=== PATIENT | female | born 1975 | race Hispanic/Latino ===

== ENCOUNTER 2019-05-14 05:14 | Emergency (ER) | payer BC, OTHER ==
[2019-05-14] MEDS ORDERED: ONDANSETRON HCL 4 MG/2 ML VIAL ONE (05:42)
[2019-05-14 05:43] LABS: BASOPHILS % (AUTO) 0.4 % (0.0-5.0); EOSINOPHILS % (AUTO) 0.8 % (0.0-8.0); HEMATOCRIT 47.6 % (36-48); LYMPHOCYTES % (AUTO) 17.5 % (21.0-51.0); MEAN CORPUSCULAR HEMOGLOBIN 25.8 pg (27.0-33.0); MEAN CORPUSCULAR HGB CONC 33.2 g/dL (32.0-36.0); MEAN CORPUSCULAR VOLUME 77.8 fL (79-99); MONOCYTES % (AUTO) 11.8 % (3.0-13.0); NEUTROPHILS % (AUTO) 69.3 % (40.0-77.0); PLATELET COUNT (AUTO) 305 K/uL (130-400); RED BLOOD CELL COUNT(AUTO) 6.12 MIL/uL (4.00-5.50); RED CELL DISTRIBUTION WIDTH 13.1 % (11.0-15.5); WHITE BLOOD COUNT (AUTO) 9.2 K/uL (4.8-10.8)
[2019-05-14 05:44] LABS: APPEARANCE,URINE Clear (CLEAR); BILIRUBIN,URINE Negative (NEGATIVE); COLOR,URINE Yellow (YELLOW); GLUCOSE, URINE (UA) Negative (NEGATIVE); KETONES,URINE 40 mg/dL (NEGATIVE); LEUKOCYTE ESTERASE ,URINE Negative (NEGATIVE); NITRATE,URINE Negative (NEGATIVE); OCCULT BLOOD,URINE Negative (NEGATIVE); PROTEIN,URINE Negative (NEGATIVE); UROBILINOGEN,URINE 0.2 mg/dL (0.2-1.0)
[2019-05-14 05:52] LABS: CREATININE 0.9 mg/dL (0.5-1.5); HCG,QUAL RESULT NEGATIVE (NEGATIVE); POTASSIUM 3.1 mmol/L (3.5-5.1)
[2019-05-14 05:56] LABS: ALBUMIN 3.4 g/dL (3.5-5.0); BILIRUBIN,TOTAL 0.3 mg/dL (0.2-1.0); TOTAL PROTEIN, SERUM 7.4 g/dL (6.0-8.3)
[2019-05-14] MEDS ORDERED: SODIUM CHLORIDE 0.9% 1000ML 1,000 ML IV ONE (06:16)
== END 2019-05-14 07:12 | disposition home or self-care (01) ==
LOC: EDH 05:14
DX: A09 Infectious gastroenteritis and colitis, unspecified (principal); E86.9 Volume depletion, unspecified; E11.9 Type 2 diabetes mellitus without complications; I10 Essential (primary) hypertension
CPT/HCPCS: 36415; 80053; 81003; 81025; 85025; 93005; 96361; 96374; 99284; J2405; J7030

== ENCOUNTER 2021-08-02 15:27 | Emergency (ER) | payer BC ==
[~2021-08-02] VITALS: Ht 165.1 cm; Wt 95.3 kg
[2021-08-02 15:50] LABS: BASOPHILS % (AUTO) 0.6 % (0.0-5.0); EOSINOPHILS % (AUTO) 2.4 % (0.0-8.0); HEMATOCRIT 37.8 % (36-48); LYMPHOCYTES % (AUTO) 30.5 % (21.0-51.0); MEAN CORPUSCULAR HEMOGLOBIN 26.5 pg (27.0-33.0); MEAN CORPUSCULAR HGB CONC 33.6 g/dL (32.0-36.0); MEAN CORPUSCULAR VOLUME 78.8 fL (79-99); MONOCYTES % (AUTO) 6.8 % (3.0-13.0); NEUTROPHILS % (AUTO) 59.6 % (40.0-77.0); PLATELET COUNT (AUTO) 357 K/uL (130-400); RED CELL DISTRIBUTION WIDTH 14.4 % (11.0-15.5); WHITE BLOOD COUNT (AUTO) 7.1 K/uL (4.8-10.8)
[2021-08-02] MEDS ORDERED: CYCLOBENZAPRINE HCL 10 MG TABLET PO ONE (16:00)
[2021-08-02] MEDS ORDERED: KETOROLAC 60 MG VIAL (30MG/ML) IM ONE (16:00)
[2021-08-02 16:11] LABS: CREATININE 0.7 mg/dL (0.5-1.5); POTASSIUM 3.8 mmol/L (3.5-5.1)
[2021-08-02 16:17] LABS: ALBUMIN 3.6 g/dL (3.5-5.0); BILIRUBIN,TOTAL 0.2 mg/dL (0.2-1.0); TOTAL PROTEIN, SERUM 7.6 g/dL (6.0-8.3)
[2021-08-02] MEDS ORDERED: KETOROLAC 30MG VIAL (30MG/ML) ONE (16:39)
[2021-08-02] MEDS ORDERED: KETOROLAC 30MG VIAL (30MG/ML) IV ONE (17:00)
[2021-08-02] MEDS ORDERED: IBUP-2070 PO (17:17)
[2021-08-02] MEDS ORDERED: CYCL10TA16 PO (17:17)
[2021-08-02 17:46] VITALS: BP 168/67
== END 2021-08-02 17:48 | disposition home or self-care (01) ==
LOC: EDH 15:27
DX: S29.012A Strain of muscle and tendon of back wall of thorax, initial encounter (principal); E11.9 Type 2 diabetes mellitus without complications; E78.00 Pure hypercholesterolemia, unspecified; I10 Essential (primary) hypertension; Z90.49 Acquired absence of other specified parts of digestive tract; Z98.890 Other specified postprocedural states; X58.XXXA Exposure to other specified factors, initial encounter; Y93.89 Activity, other specified; Y92.89 Other specified places as the place of occurrence of the external cause; Y99.8 Other external cause status
CPT/HCPCS: 36415; 71045; 73010; 80053; 84484; 85025; 93005; 96374; 99284; J1885

== ENCOUNTER 2022-03-31 18:42 | Emergency (ER) | payer BC ==
[~2022-03-31] VITALS: Ht 165.1 cm; Wt 97.5 kg
[~2022-03-31 18:42] MED LIST: CYCL10TA16 PO; IBUP-2070 PO
[2022-03-31] MEDS ORDERED: ONDANSETRON 4MG INJ IVP ONE (20:00)
[2022-03-31] MEDS ORDERED: MECLIZINE HCL 25 MG TABLET PO ONE (20:00)
[2022-03-31] MEDS ORDERED: 0.9%NACL 1000ML 1,000 ML IV ONE (20:00)
[2022-03-31 20:07] LABS: HCG,QUALITATIVE URINE NEGATIVE (NEGATIVE)
[2022-03-31 20:11] LABS: APPEARANCE,URINE CLEAR (CLEAR); BILIRUBIN,URINE NEGATIVE (NEGATIVE); COLOR,URINE COLORLESS (YELLOW); GLUCOSE, URINE (UA) >=1000 mg/dL (NEGATIVE); KETONES,URINE NEGATIVE (NEGATIVE); LEUKOCYTE ESTERASE ,URINE NEGATIVE Leu/uL (NEGATIVE); NITRATE,URINE NEGATIVE (NEGATIVE); OCCULT BLOOD,URINE NEGATIVE (NEGATIVE); PH,URINE 5.5 (5.0-8.0); PROTEIN,URINE NEGATIVE (NEGATIVE); UROBILINOGEN,URINE 0.2 mg/dL (0.2-1.0)
[2022-03-31 20:21] LABS: RBC,URINE 0-1 /HPF (0-1); SQUAMOUS EPITHELIAL CELL,UR RARE /HPF (0-2); WBC,URINE 0-1 /HPF (0-1)
[2022-03-31 20:26] LABS: BASOPHILS % (AUTO) 0.8 % (0.0-5.0); EOSINOPHILS % (AUTO) 1.8 % (0.0-8.0); HEMATOCRIT 43.8 % (36-48); LYMPHOCYTES % (AUTO) 32.9 % (21.0-51.0); MEAN CORPUSCULAR HEMOGLOBIN 26.3 pg (27.0-33.0); MEAN CORPUSCULAR HGB CONC 32.4 g/dL (32.0-36.0); MEAN CORPUSCULAR VOLUME 81.1 fL (79-99); MONOCYTES % (AUTO) 5.7 % (3.0-13.0); NEUTROPHILS % (AUTO) 58.7 % (40.0-77.0); PLATELET COUNT (AUTO) 350 K/uL (130-400); RED CELL DISTRIBUTION WIDTH 13.2 % (11.0-15.5); WHITE BLOOD COUNT (AUTO) 8.5 K/uL (4.8-10.8)
[2022-03-31 20:52] LABS: ALBUMIN 3.9 g/dL (3.5-5.0); CREATININE 0.8 mg/dL (0.5-1.5); POTASSIUM 3.8 mmol/L (3.5-5.1); TOTAL PROTEIN, SERUM 8.5 g/dL (6.0-8.3)
[2022-03-31] MEDS ORDERED: MECL-226 PO (21:37)
[2022-03-31] MEDS ORDERED: ONDA4TAB10 PO (21:37)
[2022-03-31 21:46] VITALS: BP 140/82
== END 2022-03-31 22:05 | disposition home or self-care (01) ==
LOC: EDH 18:42
DX: H81.10 Benign paroxysmal vertigo, unspecified ear (principal); E11.65 Type 2 diabetes mellitus with hyperglycemia; E78.00 Pure hypercholesterolemia, unspecified; I10 Essential (primary) hypertension; E66.9 Obesity, unspecified; Z68.35 Body mass index [BMI] 35.0-35.9, adult; Z79.1 Long term (current) use of non-steroidal anti-inflammatories (NSAID); Z90.49 Acquired absence of other specified parts of digestive tract
CPT/HCPCS: 99284; 96374; 87635; 96361; 80053; 85025; 87804 ×2; 81001; 81025; 36415; C9803; J7030; J2405

== ENCOUNTER 2023-12-07 02:25 | Emergency (ER) | payer BC ==
[~2023-12-07] VITALS: Ht 165.1 cm; Wt 88.5 kg
[~2023-12-07 02:25] MED LIST changes: +MECL-226 PO; +ONDA-243 PO
[2023-12-07 02:35] VITALS: BP 192/99; PULSE 118; RESP 18; O2SAT 98
[2023-12-07 02:38] LABS: BASOPHILS # (AUTO) 0.04 K/uL (0.00-0.20); BASOPHILS % (AUTO) 0.6 % (0.0-5.0); EOSINOPHILS # (AUTO) 0.06 K/uL (0.00-0.70); EOSINOPHILS % (AUTO) 0.9 % (0.0-8.0); HEMATOCRIT 44.5 % (36-48); IMMATURE GRANULOCYTE ABSOLUTE 0.02 K/uL (0-1); LYMPHOCYTES # (AUTO) 1.5 K/uL (1.0-4.8); LYMPHOCYTES % (AUTO) 23.3 % (21.0-51.0); MEAN CORPUSCULAR HEMOGLOBIN 26.3 pg (27.0-33.0); MEAN CORPUSCULAR HGB CONC 33.5 g/dL (32.0-36.0); MEAN CORPUSCULAR VOLUME 78.5 fL (79-99); MONOCYTES # (AUTO) 0.5 K/uL (0.1-1.0); MONOCYTES % (AUTO) 7.8 % (3.0-13.0); NEUTROPHILS # (AUTO) 4.4 K/uL (1.8-7.7); NEUTROPHILS % (AUTO) 67.1 % (40.0-77.0); PLATELET COUNT (AUTO) 333 K/uL (130-400); RED BLOOD CELL COUNT(AUTO) 5.67 MIL/uL (4.00-5.50); RED CELL DISTRIBUTION WIDTH 12.6 % (11.0-15.5); WHITE BLOOD COUNT (AUTO) 6.6 K/uL (4.8-10.8)
[2023-12-07 02:55] LABS: CREATININE 0.8 mg/dL (0.5-1.0); POTASSIUM 3.7 mmol/L (3.5-5.1)
[2023-12-07 03:00] LABS: ALBUMIN 3.3 g/dL (3.5-5.0); BILIRUBIN,TOTAL 0.3 mg/dL (0.2-1.0); TOTAL PROTEIN, SERUM 7.8 g/dL (6.0-8.3)
[2023-12-07] MEDS: MORPHINE 4 MG SYG IVP ONE (03:00)
[2023-12-07] MEDS: LACTATED RINGERS IV ONE (03:00)
[2023-12-07 03:03] LABS: SARS-CoV-2, RNA, NAAT NEGATIVE SARS CoV-2 (NEGATIVE)
[2023-12-07 03:07] LABS: INFLUENZA TYPE A Negative For Type A (NEGATIVE); INFLUENZA TYPE B Negative For Type B (NEGATIVE)
[2023-12-07] MEDS: INSULIN HUMULIN R 100 UNIT/ML 3ML SQ ONE ×2 (04:56→06:42)
[2023-12-07] MEDS: INSULIN NPH 100 UNIT/ML 3ML SQ SCH (05:53)
== END 2023-12-07 07:36 | disposition home or self-care (01) ==
LOC: EDH 02:25
DX: R10.84 Generalized abdominal pain (principal); E11.9 Type 2 diabetes mellitus without complications; E78.00 Pure hypercholesterolemia, unspecified; E66.9 Obesity, unspecified; I10 Essential (primary) hypertension; Z20.822 Contact with and (suspected) exposure to COVID-19; Z79.899 Other long term (current) drug therapy; Z90.49 Acquired absence of other specified parts of digestive tract; Z98.890 Other specified postprocedural states
CPT/HCPCS: 99284; 74176; 96374; 96375; 96361; 71045; 87635; 84484; 80053; 85025; 87804 ×2; 82948 ×3; 83605; 36415; 93005; J1815 ×3; J7120; J2270

== ENCOUNTER 2025-02-27 08:28 | Emergency (ER) | payer BC ==
[~2025-02-27] VITALS: Ht 165.1 cm; Wt 90.7 kg
[~2025-02-27 08:28] MED LIST changes: -CYCL10TA16 PO; -IBUP-2070 PO; +INSU100I3 SQ; +INSU100I35 SQ; +LISI5TAB21 PO; +METO25 PO; +PANT40TA PO
[2025-02-27] MEDS: 0.9%NACL 1000ML 1,000 ML IV ONE (09:00)
[2025-02-27 09:05] LABS: IMMATURE GRANULOCYTE ABSOLUTE 0.03 K/uL (0-1); NUCLEATED RED BLOOD CELLS 0.0 % (0.0-0.19); PLATELET COUNT (AUTO) 205 K/uL (130-400); RED BLOOD CELL COUNT(AUTO) 5.19 MIL/uL (4.00-5.50); RED CELL DISTRIBUTION WIDTH 13.7 % (11.0-15.5); WHITE BLOOD COUNT (AUTO) 5.5 K/uL (4.8-10.8)
[2025-02-27 09:13] LABS: CREATININE 0.9 mg/dL (0.5-1.0); GLOMERULAR FILTR. RATE CALC 78 mL/min (>90); GLUCOSE,RANDOM 331 mg/dL (70-105); SODIUM SERUM 133 mmol/L (136-145); UREA NITROGEN, BLOOD 11 mg/dL (7-18)
[2025-02-27 09:18] LABS: ASPARTATE AMINOTRANSFERASE 42 U/L (10-37); CREATINE KINASE, TOTAL 60 U/L (21-232); TOTAL PROTEIN, SERUM 6.8 g/dL (6.0-8.3)
--- NOTE | 2025-02-27 09:33 | EKG ---
[facility] Test Date: 2025-02-27 Test Time: 09:26:42 Pat Name: EMILIE JOSEPH Department: ED Room: Gender: F Chief Operator Lock Tender: 1378 : 1975 Requested By: KULDIP SANTOS Order Number: [id number] Reading MD: Abrahan Estrada Measurements Intervals [place] Rate: 97 P: 43 ID: [id number] QRS: -4 QRSD: 79 T: 38 QT: 339 QTc: 431 Interpretive Statements Sinus rhythm Probable left atrial enlargement Probable left ventricular hypertrophy Compared to ECG 05/06/2024 20:55:31 Sinus tachycardia no longer present Myocardial infarct finding no longer present Electronically Signed On 02-27-2025 18:16:57 [employer] PIPE [employer]KER [employer]AL by Abrahan Estrada Please click the below link to view image of tracing.
[2025-02-27 10:05] LABS: COVID19 (SARS ANTIGEN RAPID) PRESUMPTIVE NEGATIVE (NEGATIVE); INFLUENZA TYPE A Negative For Type A (NEGATIVE); INFLUENZA TYPE B Negative For Type B (NEGATIVE)
[2025-02-27 10:24] LABS: BAND NEUTROPHILS % (MANUAL) 4 % (0-2); BASOPHILS % (MANUAL) 3 % (0-2); LYMPHOCYTES % (MANUAL) 17 % (22-44); MAN.DIFF COMMENT-IMPRESSION MANUAL DIFFERENTIAL; MONOCYTES % (MANUAL) 7 % (2-9); PLATELET MORPHOLOGY COMMENT ADEQUATE; REACTIVE LYMPHOCYTES 8 % (0-0); SEGMENTED NEUTROPHILS % 61 % (40-70)
[2025-02-27 11:04] LABS: APPEARANCE,URINE CLEAR (CLEAR); GLUCOSE, URINE (UA) >=1000 mg/dL (NEGATIVE); LEUKOCYTE ESTERASE ,URINE 25 Leu/uL (NEGATIVE); NITRATE,URINE 1+ (NEGATIVE); OCCULT BLOOD,URINE LARGE (NEGATIVE)
[2025-02-27 11:05] LABS: ADD UA MICROSCOPIC YES
[2025-02-27 11:17] LABS: SQUAMOUS EPITHELIAL CELL,UR FEW /HPF (0-2)
[2025-02-27] MEDS ORDERED: ONDA-243 PO (11:51)
[2025-02-27] MEDS ORDERED: CIPR-278 PO (11:51)
--- NOTE | 2025-02-27 11:51 | ERN ---
ED Note History of Present Illness Stated Complaint: UPPER BACK PAIN, N/V Chief Complaint: Back Pain-No Injury Time Seen by MD: 08:37 Dictation: 49-year-old female presenting to the emergency department with nausea vomiting and back pain, history of diabetes says her sugars have been high and not feeling well body aches as well. No chest pain or shortness a breath Allergies: Coded Allergies: No Known Drug Allergies (Unverified Allergy, Unknown, 05/15/19) Home Meds Active Scripts Insulin Aspart (Novolog Flexpen) 100 Unit/Ml (3 Ml) Insuln.pen, 2 UNITS SQ TIDAC for 30 Days, #30 SYRINGE 1 Refill Prov:MABEL SEPULVEDA MD 05/12/24 Insulin NPH Hum/Reg Insulin Hm (Novolin 70-30 Flexpen) 100 Unit/Ml (70-30) In suln.pen, 15 UNIT SQ BID for 30 Days, #30 SYRINGE 1 Refill Prov:MABEL SEPULVEDA MD 05/12/24 Pantoprazole Sodium (Protonix) 40 Mg Tablet.dr, 40 MG PO DAILY for 30 Days, #30 TAB 1 Refill Prov:MABEL SEPULVEDA MD 05/12/24 Metoprolol Tartrate (Lopressor) 25 Mg Tab, 25 MG PO BID for 30 Days, #60 TAB 1 Refill Prov:MABEL SEPULVEDA MD 05/12/24 Lisinopril (Lisinopril) 5 Mg Tablet, 5 MG PO DAILY for 30 Days, #30 TAB 1 Refill Prov:MABEL SEPULVEDA MD 05/12/24 Meclizine HCl (Meclizine HCl) 12.5 Mg Tablet, 25 MG PO TID PRN for DIZZINESS, #20 TAB Prov:MILAN JUSTIN 03/31/22 Ondansetron (Ondansetron Odt) 4 Mg Tab.rapdis, 4 MG PO TID, #10 TAB Prov:MILAN JUSTIN 03/31/22 Past Medical History Past Medical History: Diabetes-Type II, High Cholesterol, Hypertension, Kidney Stone Additional Past Medical Hx: Obesity, NON COMPLIANT W/ DM MEDS Surgical History: Cholecystectomy, Family History: Negative Social History: Negative Review of System Dictation Constitutional: Negative for fever,chills, and weight loss Eyes: Negative for injury, pain,redness, and discharge ENT: Negative for injury,pain or swelling Cardiovascular: Negative for chest pain, palpitations, and edema Respiratory: Negative for shortness of breath, cough, and wheezing, Abdomen/GI: Per HPI : Negative for injury, bleeding and discharge MS/Extremity: Negative for injury and deformity Skin: Negative for rash, and discoloration Neuro: Per HPI Initial Vital Sign VS Vital Signs Date Time Temp Pulse Resp B/P (MAP) Pulse Ox O2 Delivery O2 Flow Rate FiO2 02/27/25 08:29 97.9 112 18 190/86 100 Room Air 0 Physical Exam Dictation General: awake, alert, NAD Head/Face: Normocephalic, atraumatic Eyes: PERRL, EOMI, vision at baseline ENT: oral cavity clear, TMs clear, no signs of infection Neck: Trachea midline, supple, no nuchal rigidity Cardiovascular: RRR, normal S1/S2, No MRGs, no JVD Respiratory: CTAB, no respiratory distress, No rales or wheezes Abdomen: Soft, non-tender, non-distended, normal bowel sounds, no guarding or rebound. Skin: Warm, dry, normal turgor, no rash MS/Extremity: Pulses equal, no cyanosis, neurovascular intact, FROM Neuro: COAx4, GCS 15, strength 5/5, CN 2-12 intact, normal cerebellar exam, normal gait, Psych: Normal behavior, mood, and affect normal Results (Laboratory/Radiology) Laboratory/Radiology Laboratory Tests Test 02/27/25 08:50 02/27/25 09:30 02/27/25 10:45 White Blood Count 5.5 K/uL (4.8-10.8) Red Blood Count 5.19 MIL/uL (4.00-5.50) Hemoglobin 13.0 g/dL (12.0-16.0) Hematocrit 40.6 % (36-48) Mean Corpuscular Volume 78.2 fL (79-99) L Mean Corpuscular Hemoglobin 25.0 pg (27.0-33.0) L Mean Corpuscular Hemoglobin Concent 32.0 g/dL (32.0-36.0) Red Cell Distribution Width 13.7 % (11.0-15.5) Platelet Count 205 K/uL (130-400) Mean Platelet Volume 10.0 fL (7.5-10.5) Immature Granulocyte % (Auto) 0.5 % (0-1) Neutrophils (%) (Auto) 55.2 % (40.0-77.0) Lymphocytes (%) (Auto) 36.5 % (21.0-51.0) Monocytes (%) (Auto) 5.8 % (3.0-13.0) Eosinophils (%) (Auto) 1.3 % (0.0-8.0) Basophils (%) (Auto) 0.7 % (0.0-5.0) Neutrophils # (Auto) 3.0 K/uL (1.8-7.7) Lymphocytes # (Auto) 2.0 K/uL (1.0-4.8) Monocytes # (Auto) 0.3 K/uL (0.1-1.0) Eosinophils # (Auto) 0.07 K/uL (0.00-0.70) Basophils # (Auto) 0.04 K/uL (0.00-0.20) Absolute Immature Granulocyte (auto 0.03 K/uL (0-1) Segmented Neutrophils % 61 % (40-70) Band Neutrophils % 4 % (0-2) H Lymphocytes % (Manual) 17 % (22-44) L Monocytes % (Manual) 7 % (2-9) Basophils % (Manual) 3 % (0-2) H Nucleated Red Blood Cells 0.0 % (0.0-0.19) Differential Comment MANUAL DIFFERENTIAL Reactive Lymphocytes 8 % (0-0) H White Cell Morphology Comment Platelet Morphology Comment ADEQUATE Red Blood Cell Morphology NORMAL Sodium Level 133 mmol/L (136-145) L Potassium Level 4.0 mmol/L (3.5-5.1) Chloride Level 96 mmol/L (101-111) L Carbon Dioxide Level 28 mmol/L (21-32) Blood Urea Nitrogen 11 mg/dL (7-18) Creatinine 0.9 mg/dL (0.5-1.0) Glomerular Filtration Rate Calc 78 mL/min (>90) Random Glucose 331 mg/dL (70-105) H Lactic Acid Level 1.2 mmol/L (0.8-2.5) Total Calcium 8.2 mg/dL (8.5-10.1) L Total Bilirubin 0.3 mg/dL (0.2-1.0) Direct Bilirubin < 0.1 mg/dL (0.0-0.3) Aspartate Amino Transf (AST/SGOT) 42 U/L (10-37) H Alanine Aminotransferase (ALT/SGPT) 55 U/L (12-78) Alkaline Phosphatase 115 U/L (50-136) Total Creatine Kinase 60 U/L (21-232) # Troponin I High Sensitivity 26 ng/L (4-50) Total Protein 6.8 g/dL (6.0-8.3) Albumin 3.2 g/dL (3.5-5.0) L Lipase 54 U/L (16-77) Influenza Type A Antigen Negative For Type A Influenza Type B Antigen Negative For Type B SARS-CoV-2 Antigen (Rapid) PRESUMPTIVE NEGATIVE Urine Color LIGHT-YELLOW (YELLOW) Urine Appearance CLEAR (CLEAR) Urine pH 5.5 (5.0-8.0) Urine Specific [place] 1.022 (1.001-1.031) Urine Protein 50 mg/dL (NEGATIVE) H Urine Glucose (UA) >=1000 mg/dL (NEGATIVE) H Urine Ketones 40 mg/dL (NEGATIVE) H Urine Occult Blood LARGE (NEGATIVE) H Urine Nitrate 1+ (NEGATIVE) H Urine Bilirubin NEGATIVE mg/dL (NEGATIVE) Urine Urobilinogen 0.2 mg/dL (0.2-1.0) Urine Leukocyte Esterase 25 Mohan/uL (NEGATIVE) H Urine RBC 6-10 /HPF (0-1) H Urine WBC 11-25 /HPF (0-1) H Urine Squamous Epithelial Cells FEW /HPF (0-2) Urine Bacteria MANY /HPF (None Seen) Labs Reviewed?: Yes ED Course ED Course Orders Procedure Category Date Status Time 12 Lead Ekg Tracing- EKG 02/27/25 Complete Technical 08:37 Basic Metabolic Panel LAB 02/27/25 Complete 08:37 Cbc With Differential LAB 02/27/25 Complete 08:37 Hepatic Function Panel LAB 02/27/25 Complete 08:37 Creatine Kinase, Total LAB 02/27/25 Complete 08:37 Lactic Acid LAB 02/27/25 Complete 08:37 Lipase LAB 02/27/25 Complete 08:37 Troponin I High LAB 02/27/25 Complete Sensitivity 08:37 Urinalysis Profile LAB 02/27/25 Complete 08:37 Ondansetron 4mg Inj PHA 02/27/25 Complete (Zofran 4mg Inj) 08:37 0.9%Nacl 1000ml (Ns PHA 02/27/25 Complete 1000ml) 09:00 Manual Differential LAB 02/27/25 Complete 08:50 Covid19 (Sars Antigen LAB 02/27/25 Complete Rapid) 09:19 Influenza Type A & B, LAB 02/27/25 Complete Rapid 09:19 Culture Urine SILVANO 02/27/25 In Process 11:05 Ceftriaxone 1g Vial PHA 02/27/25 Transmitted (Rocephine 1g Inj) 11:47 Insulin Regular, PHA 02/27/25 Transmitted Human 3ml (Humulin R 11:47 Current Medications Medications (Trade) Dose Ordered Sig/Keerthi Route PRN Reason Start Time Stop Time Status Last Admin Dose Admin Ondansetron HCl (zoFRAN 4MG INJ) 4 mg ONCE STAT IVP 02/27/25 08:37 02/27/25 08:40 DC Sodium Chloride 1,000 ml @ 0 mls/hr ONCE ONCE IV 02/27/25 09:00 02/27/25 09:01 DC Vital Signs Date Time Temp Pulse Resp B/P (MAP) Pulse Ox O2 Delivery O2 Flow Rate FiO2 02/27/25 08:29 97.9 112 18 190/86 100 Room Air 0 Medical Decision Making MDM MDM: Differential diagnosis: Rationale: Tests considered and ordered secondary to shared decision making include: Previous outside records reviewed: Old ER visits. Risk of complication and/or morbidity or mortality of patient management: None Medications-Per medication reconciliation Need for hospitalization: Patient does not meet criteria for hospitalization. Need for emergency major/minor surgery: No There are no social concerns with this patient. Prescription drug management Prescriptions will include symptomatic care Patient's prior external medical records from other ER visits were reviewed by me as indicated. Prior testing and results from previous visits were reviewed. Prior tests were taken into account with medical decision making and resource utilization, independent historian/historians were used to obtain complete medi david history. I independently interpreted the test that were performed, results were reviewed by me and considered findings on radiology if ordered. Medical management and examination interpretation discussions were had by me with other qualified healthcare professionals as indicated for the patient's care. 49-year-old female with generalized weakness UTI and elevated sugar levels with normal CO2 no signs of DKA IV fluids and insulin given stable for discharge outpatient antibiotic treatment. DX & DISP Disposition: Discharge Departure Impression: Primary Impression: Hyperglycemia Additional Impression: Pyelonephritis Condition: Stable Scripts Ciprofloxacin HCl (Cipro) 500 Mg Tablet 1 TAB PO BID for 7 Days, #14 TAB 0 Refills Prov: KULDIP SANTOS MD 02/27/25 Ondansetron (Ondansetron Odt) 4 Mg Tab.rapdis 1 TAB PO BID PRN for nausea/vomiting for 5 Days, #10 TAB 0 Refills Prov: KULDIP SANTOS MD 02/27/25 Referrals: LANDON MCLAUGHLIN DO (PCP) KULDIP SANTOS MD Feb 27, 2025 11:51
[2025-02-27 14:04] VITALS: BP 168/86; PULSE 69; RESP 20; TEMP 98.5; O2SAT 97
--- NOTE | 2025-03-01 09:49 | NUR ---
UPON FURTHER REVIEW OF CULTURE REPORT BY DR. LOYA (NEW ABX *BACTRIM DS BID X7 DAYS) IS NEEDED. CALLED PT, NO ANSWER; LEFT VOICEMAIL.
[2025-03-29] MEDS ORDERED: MECL-302 PO (13:00)
[2025-03-29] MEDS ORDERED: AMOX1TAB16 PO (13:00)
== END 2025-02-27 14:24 | disposition home or self-care (01) ==
LOC: EDH 08:28
DX: N12 Tubulo-interstitial nephritis, not specified as acute or chronic (principal); E11.65 Type 2 diabetes mellitus with hyperglycemia; E66.9 Obesity, unspecified; E78.00 Pure hypercholesterolemia, unspecified; I10 Essential (primary) hypertension; Z20.822 Contact with and (suspected) exposure to COVID-19; Z79.4 Long term (current) use of insulin; Z79.899 Other long term (current) drug therapy; Z87.442 Personal history of urinary calculi; Z90.49 Acquired absence of other specified parts of digestive tract
CPT/HCPCS: 99284; 96365; 96361; 96375; 87426; 82550; 80076; 84484; 80048; 83690; 85025; 87086 ×2; 87186; 87804 ×2; 82948; 83605; 81001; 36415; 93005; 96372; J1815; J0696; J2405

== ENCOUNTER 2025-03-29 10:13 | Emergency (ER) | payer BC ==
[~2025-03-29] VITALS: Ht 165.1 cm; Wt 90.7 kg
--- NOTE | 2025-03-29 10:19 | ERN ---
ED Note History of Present Illness Stated Complaint: DIZZINESS Chief Complaint: Dizzy/Light Headed Time Seen by MD: 10:15 Dictation: PATIENT IS A 49-YEAR-OLD DIABETIC FEMALE COMING IN TODAY WITH COMPLAINTS OF VERTIGO WITH NAUSEA VOMITING AND GENERALIZED BODY WEAKNESS ONSET THIS MORNING. NO CHEST PAIN BACK PAIN NO HEADACHE. SHE STATES SHE HAS A HISTORY OF VERTIGO IN HIS NOT SEEN HER DOCTOR AT [facility]. Allergies: Coded Allergies: No Known Drug Allergies (Unverified Allergy, Unknown, 05/15/19) Home Meds Active Scripts Ciprofloxacin HCl (Cipro) 500 Mg Tablet, 1 TAB PO BID for 7 Days, #14 TAB 0 Refills Prov:KULDIP SANTOS MD 02/27/25 Ondansetron (Ondansetron Odt) 4 Mg Tab.rapdis, 1 TAB PO BID PRN for nausea/vomiting for 5 Days, #10 TAB 0 Refills Prov:KULDIP SANTOS MD 02/27/25 Insulin Aspart (Novolog Flexpen) 100 Unit/Ml (3 Ml) Insuln.pen, 2 UNITS SQ TIDAC for 30 Days, #30 SYRINGE 1 Refill Prov:MABEL SEPULVEDA MD 05/12/24 Insulin NPH Hum/Reg Insulin Hm (Novolin 70-30 Flexpen) 100 Unit/Ml (70-30) In suln.pen, 15 UNIT SQ BID for 30 Days, #30 SYRINGE 1 Refill Prov:MABEL SEPULVEDA MD 05/12/24 Pantoprazole Sodium (Protonix) 40 Mg Tablet.dr, 40 MG PO DAILY for 30 Days, #30 TAB 1 Refill Prov:MABEL SEPULVEDA MD 05/12/24 Metoprolol Tartrate (Lopressor) 25 Mg Tab, 25 MG PO BID for 30 Days, #60 TAB 1 Refill Prov:MABEL SEPULVEDA MD 05/12/24 Lisinopril (Lisinopril) 5 Mg Tablet, 5 MG PO DAILY for 30 Days, #30 TAB 1 Refill Prov:MABEL SEPULVEDA MD 05/12/24 Meclizine HCl (Meclizine HCl) 12.5 Mg Tablet, 25 MG PO TID PRN for DIZZINESS, #20 TAB Prov:MILAN JUSTIN 03/31/22 Ondansetron (Ondansetron Odt) 4 Mg Tab.rapdis, 4 MG PO TID, #10 TAB Prov:MILAN JUSTIN DATABASE PROGRAMMER ANALYST 03/31/22 Past Medical History Past Medical History: Diabetes-Type II, High Cholesterol, Hypertension, Kidney Stone Additional Past Medical Hx: Obesity, NON COMPLIANT W/ DM MEDS Surgical History: Cholecystectomy, Family History: Negative Social History: Negative History: Not Applicable RN Note Reviewed/Agreed w/PFSH: Yes Review of System Dictation NORMAL ROS CONSTITUTIONAL: NEGATIVE EXCEPT FOR HPI HEAD/FACE: NEGATIVE EXCEPT FOR HPI EENT: NEGATIVE EXCEPT FOR HPI RESPIRATORY: NEGATIVE EXCEPT FOR HPI GASTROINTESTINAL/ABDOMINAL: NEGATIVE EXCEPT FOR HPI NAUSEA VOMITING GENITOURINARY: NEGATIVE EXCEPT FOR HPI MUSCULOSKELETAL: NEGATIVE EXCEPT FOR HPI INTEGUMENTARY: NEGATIVE EXCEPT FOR HPI NEUROLOGICAL/PSYCH: NEGATIVE EXCEPT FOR HPI DIZZINESS/VERTIGO HEMATOLOGIC/LYMPHATIC: NEGATIVE EXCEPT FOR HPI ALL SYSTEMS NEGATIVE, EXCEPT NOTED ABOVE. 13 POINT REVIEW OF SYSTEMS ASSESSED AND ALL NEGATIVE EXCEPT FOR ABOVE. Initial Vital Sign VS Vital Signs Date Time Temp Pulse Resp B/P (MAP) Pulse Ox O2 Delivery O2 Flow Rate FiO2 03/29/25 10:15 97.0 78 18 181/75 98 Room Air 0 03/29/25 11:17 21 Physical Exam Dictation VITAL SIGNS REVIEWED GENERAL APPEARANCE: ALERT, ORIENTED X 3, MILD ACUTE DISTRESS, WELL DEVELOPED, NOURISHED. HEAD AND FACE: NON-TRAUMATIC. EYES: PERRL, PINK CONJUNCTIVAS, EYELID NO TRAUMA, ANTERIOR CHAMBER WITH ARCUS SENILIS. HORIZONTAL NYSTAGMUS BILATERALLY EARS: PINNAS INTACT AND NO SIGNS OF TRAUMA OR ERYTHEMA EAR CANALS CLEAR AND NO DISCHARGE TM NO ERYTHEMA NOSE: NO DISCHARGE, NO BLEEDING. OROPHARYNX: MOUTH NORMAL, TONGUE PINK, PHARYNX CLEAR,NO ERYTHEMA, TONSILS NO EXUDATES, NO ABSCESSES NOTED, MUCOUS MEMBRANE MOIST NECK: SUPPLE, NON-TENDER, NO THYROMEGALY, NO MASSES, NO JVD, NO BRUITS BREAST:DEFERRED CHEST:NO TENDERNESS, NO CREPITUS, NO PARADOXICAL MOVEMENT, NO RETRACTIONS LUNGS:CLEAR, WELL-VENTILATED, SYMMETRIC, NO RALES, NO WHEEZING, NO RHONCHI, NO STRIDOR, GOOD BREATH SOUNDS BILATERALLY HEART: REGULAR RATE, REGULAR RHYTHM, NO MURMUR, NO GALLOPS VASCULAR: NO PERIPHERAL EDEMA, ABDOMEN: SOFT, POSITIVE BOWEL SOUNDS, NONDISTENDED, NO GUARDING, NONTENDER, NO REBOUND, NO MASSES NO HEPATOMEGALY, NO SPLENOMEGALY, NO HERRERA'S SIGN, NO HERNIAS. RECTAL: DEFERRED GENITAL: DEFERRED NEUROLOGICAL: NORMAL SPEECH, MOTOR FUNCTION INTACT, SENSORY FUNCTION INTACT MUSCULOSKELETAL: NECK NONTENDER, FULL RANGE OF MOTION, BACK NONTENDER, FULL RANGE OF MOTION, EXTREMITIES: NONTENDER, FULL RANGE OF MOTION SKIN: COLOR PINK, DRY, NO TURGOR, NO RASH, NO LACERATIONS, NO ABRASIONS, NO CONTUSIONS. LYMPHATIC: DEFERRED Results (Laboratory/Radiology) Laboratory/Radiology Laboratory Tests Test 03/29/25 10:46 03/29/25 11:03 03/29/25 11:04 Urine Color YELLOW (YELLOW) Urine Appearance CLOUDY (CLEAR) H Urine pH 8.5 (5.0-8.0) H Urine Specific [place] 1.030 (1.001-1.031) Urine Protein >600 (4+) mg/dL Urine Glucose (UA) NEGATIVE mg/dL (NEGATIVE) Urine Ketones TRACE mg/dL (NEGATIVE) Urine Occult Blood TRACE (NEGATIVE) H Urine Nitrate NEGATIVE (NEGATIVE) Urine Bilirubin NEGATIVE mg/dL (NEGATIVE) Urine Urobilinogen 0.2 mg/dL (0.2-1.0) Urine Leukocyte Esterase LARGE Mohan/uL (NEGATIVE) H Urine RBC 6-10 /HPF (0-1) H Urine WBC 26-50 /HPF (0-1) H Urine Squamous Epithelial Cells Many /HPF (0-2) H Urine Bacteria Many /HPF (None Seen) H White Blood Count 6.3 K/uL (4.8-10.8) Red Blood Count 4.35 MIL/uL (4.00-5.50) Hemoglobin 11.2 g/dL (12.0-16.0) L Hematocrit 34.5 % (36-48) L Mean Corpuscular Volume 79.3 fL (79-99) Mean Corpuscular Hemoglobin 25.7 pg (27.0-33.0) L Mean Corpuscular Hemoglobin Concent 32.5 g/dL (32.0-36.0) Red Cell Distribution Width 15.0 % (11.0-15.5) Platelet Count 272 K/uL (130-400) Mean Platelet Volume 9.3 fL (7.5-10.5) Immature Granulocyte % (Auto) 0.6 % (0-1) Neutrophils (%) (Auto) 41.3 % (40.0-77.0) Lymphocytes (%) (Auto) 46.4 % (21.0-51.0) Monocytes (%) (Auto) 9.3 % (3.0-13.0) Eosinophils (%) (Auto) 1.8 % (0.0-8.0) Basophils (%) (Auto) 0.6 % (0.0-5.0) Neutrophils # (Auto) 2.6 K/uL (1.8-7.7) Lymphocytes # (Auto) 2.9 K/uL (1.0-4.8) Monocytes # (Auto) 0.6 K/uL (0.1-1.0) Eosinophils # (Auto) 0.11 K/uL (0.00-0.70) Basophils # (Auto) 0.04 K/uL (0.00-0.20) Absolute Immature Granulocyte (auto 0.04 K/uL (0-1) Nucleated Red Blood Cells 0.0 % (0.0-0.19) Sodium Level 140 mmol/L (136-145) Potassium Level 3.9 mmol/L (3.5-5.1) Chloride Level 105 mmol/L (101-111) Carbon Dioxide Level 28 mmol/L (21-32) Blood Urea Nitrogen 17 mg/dL (7-18) Creatinine 0.8 mg/dL (0.5-1.0) Glomerular Filtration Rate Calc 90 mL/min (>90) Random Glucose 192 mg/dL (70-105) H Total Calcium 8.8 mg/dL (8.5-10.1) Troponin I High Sensitivity 34 ng/L (4-50) Whole Blood Glucose 187 MG/DL (70-110) H Labs Reviewed?: Yes EKG Comment: EKG SINUS RHYTHM/HEART RATE 72/LEFT ATRIAL ENLARGEMENT/LEFT VENTRICULAR HYPERTROPHY ED Course ED Course Orders Procedure Category Date Status Time Cbc With Differential LAB 03/29/25 Complete 10:15 Troponin I High LAB 03/29/25 Complete Sensitivity 10:15 Urinalysis Profile LAB 03/29/25 Complete 10:15 12 Lead Ekg Tracing- EKG 03/29/25 Logged Technical 10:15 0.9%Nacl 1000ml (Ns PHA 03/29/25 Complete 1000ml) 10:30 Ondansetron 4mg Inj PHA 03/29/25 Complete (Zofran 4mg Inj) 10:30 Basic Metabolic Panel LAB 03/29/25 Complete 10:15 Dexamethasone 4mg/Ml PHA 03/29/25 Complete 1ml Vial (Dexametha 10:30 Meclizine Hcl 25 Mg PHA 03/29/25 Complete (Antivert 25 Mg) 10:30 Culture Urine SILVANO 03/29/25 In Process 11:17 Blood Cult SILVANO 03/29/25 In Process 11:24 Ceftriaxone 2gm Vial PHA 03/29/25 Complete (Rocephin 2gm Inj) 11:30 Current Medications Medications (Trade) Dose Ordered Sig/Keerthi Route PRN Reason Start Time Stop Time Status Last Admin Dose Admin Ceftriaxone Sodium (Rocephin 2gm Inj) 2 gm ONCE ONCE IVPB 03/29/25 11:30 03/29/25 11:31 DC Dexamethasone Sodium Phosphate (dexaMETHasone 4MG/ML 1ML VIAL) 8 mg ONCE ONCE IVP 03/29/25 10:30 03/29/25 10:31 DC 03/29/25 11:43 Meclizine HCl (ANTIvert 25 mg) 50 mg ONCE ONCE PO 03/29/25 10:30 03/29/25 10:31 DC 03/29/25 11:43 Ondansetron HCl (zoFRAN 4MG INJ) 4 mg ONCE ONCE IVP 03/29/25 10:30 03/29/25 10:31 DC 03/29/25 11:43 Sodium Chloride 1,000 ml @ 0 mls/hr ONCE ONCE IV 03/29/25 10:30 03/29/25 10:31 DC 03/29/25 11:43 Vital Signs Date Time Temp Pulse Resp B/P (MAP) Pulse Ox O2 Delivery O2 Flow Rate FiO2 03/29/25 11:17 98.2 80 20 180/80 100 Room Air* 0 21 03/29/25 10:15 97.0 78 18 181/75 98 Room Air 0 1300/PATIENT STATES SHE FEELS MARKEDLY IMPROVED AFTER TREATMENT. SHE IS AWARE SHE HAS A URINARY TRACT INFECTION BENIGN POSITIONAL VERTIGO DEHYDRATION UNCONTROLLED DIABETES SHE STATES SHE IS COMPLIANT WITH HER DIABETIC MEDICATIONS HOWEVER SHE HAS NOT SEEN HER DOCTOR AT [facility] IN SEVERAL DAYS. SHE WILL BE REFERRED BACK TO HIM FOR FOLLOW UP AND MANAGEMENT HEART Score Response (Comments) Value EKG: Repolarization changes 1 Age: 45-65yrs (+1) 1 Risk Factors: 1-2 risk factors (+1) 1 Initial Troponin: Normal limit (0) 0 Total 3 Medical Decision Making [facility] MDM: DIFFERENTIAL DIAGNOSIS: POSITIONAL VERTIGO/LABYRINTHITIS/ELECTROLYTE IMBALANCE/DEHYDRATION/UNCONTROLLED DIABETES/ACS/AMI RATIONALE: TESTS CONSIDERED AND ORDERED SECONDARY TO SHARED DECISION MAKING INCLUDE: LABS/RADIOLOGY EKG PREVIOUS OUTSIDE RECORDS REVIEWED: OLD ER VISITS. RISK OF COMPLICATION AND/OR MORBIDITY OR MORTALITY OF PATIENT MANAGEMENT: NONE MEDICATIONS-PER MEDICATION RECONCILIATION NEED FOR HOSPITALIZATION: PATIENT DOES NOT MEET CRITERIA FOR HOSPITALIZATION. NONE NEED FOR EMERGENCY MAJOR/MINOR SURGERY: NO THERE ARE NO SOCIAL CONCERNS WITH THIS PATIENT. PRESCRIPTION DRUG MANAGEMENT AUGMENTIN/MECLIZINE PRESCRIPTIONS WILL INCLUDE SYMPTOMATIC CARE PATIENT'S PRIOR EXTERNAL MEDICAL RECORDS FROM OTHER ER VISITS WERE REVIEWED BY ME INDICATED. PRIOR TESTING AND RESULTS FROM PREVIOUS VISITS WERE REVIEWED. PRIOR TESTS WERE TAKEN INTO ACCOUNT WITH MEDICAL DECISION MAKING AND RESOURCE UTILIZATION, INDEPENDENT HISTORIAN/HISTORIANS WERE USED TO OBTAIN COMPLETE MEDICAL HISTORY. I INDEPENDENTLY INTERPRETED THE TEST THAT WERE PERFORMED, RESULTS WERE REVIEWED BY ME AND CONSIDERED FINDINGS ON RADIOLOGY IF ORDERED. MEDICAL MANAGEMENT AND EXAMINATION INTERPRETATION DISCUSSIONS WERE HAD BY ME WITH OTHER QUALIFIED HEALTHCARE PROFESSIONALS INDICATED FOR THE PATIENT'S CARE. DX & DISP Disposition: Discharge Departure Impression: Primary Impression: BPV (benign positional vertigo) Additional Impressions: Dehydration, Uncontrolled diabetes mellitus, Acute cystitis Condition: Stable Scripts Meclizine HCl (Meclizine HCl) 25 Mg Tablet 25 MG PO TID for vertigo, #30 TAB 0 Refills Prov: DIANA ROJAS DATABASE PROGRAMMER ANALYST 03/29/25 Amoxicillin/Potassium Clav (Amox Tr-K Clv 875-125 mg Tab) 875 Mg-125 Mg Tablet 1 EACH PO BID for 7 Days, #14 TAB 0 Refills Prov: DIANA ROJAS DATABASE PROGRAMMER ANALYST 03/29/25 Additional Instructions: FOLLOW-UP WITH PRIMARY CARE PROVIDER IN 1 TO 2 DAYS. TAKE MEDICATIONS DIRECTED HERE IN THE EMERGENCY ROOM. OKAY TO CONTINUE HOME MEDICATIONS UNLESS OTHERWISE DISCUSSED DURING YOUR VISIT IN THE EMERGENCY ROOM TODAY. RETURN TO YOUR NEAREST EMERGENCY ROOM IF SYMPTOMS WORSEN OR IF THERE IS NO IMPROVEMENT. CALL 911 IF YOU NEED IMMEDIATE ASSISTANCE. TAKE TYLENOL OR MOTRIN [id number] NEEDED AND IF NO CONTRAINDICATIONS ARE PRESENT. INCREASE OR AL HYDRATION. A WOUND CULTURE OR URINE CULTURE WAS ORDERED HERE IN THE EMERGENCY ROOM DEPARTMENT PLEASE FOLLOW-UP WITH PRIMARY CARE PROVIDER AND ADVISE THEM TO GET REPEAT PORTS FROM OUR FACILITY. IF YOU HAD ANY JIMMY WRAP/SPLINTS THAT WERE APPLIED HERE, PLEASE DO NOT REMOVE THEM UNTIL YOU SEE YOUR PRIMARY CARE OR SPECIALTY. TAKE ANTIBIOTICS DIRECTED UNTIL GONE. INCREASE YOUR WATER INTAKE. TAKE MECLIZINE EVERY 8 HOURS FOR THE NEXT TWO DAYS. SEE YOUR PRIMARY CARE DOCTOR FOR FOLLOW UP. Referrals: LANDON MCLAUGHLIN DO (PCP) Time of Disposition: 12:59 I have reviewed the case, and I agree with, Diagnosis and Plan DIANA ROJAS [facility] Mar 29, 2025 10:19
[2025-03-29 11:10] LABS: IMMATURE GRANULOCYTE ABSOLUTE 0.04 K/uL (0-1); NUCLEATED RED BLOOD CELLS 0.0 % (0.0-0.19); PLATELET COUNT (AUTO) 272 K/uL (130-400); RED BLOOD CELL COUNT(AUTO) 4.35 MIL/uL (4.00-5.50); RED CELL DISTRIBUTION WIDTH 15.0 % (11.0-15.5); WHITE BLOOD COUNT (AUTO) 6.3 K/uL (4.8-10.8)
[2025-03-29 11:12] LABS: APPEARANCE,URINE CLOUDY (CLEAR)
[2025-03-29 11:15] LABS: GLUCOSE, URINE (UA) NEGATIVE (NEGATIVE); OCCULT BLOOD,URINE TRACE (NEGATIVE)
[2025-03-29 11:16] LABS: CREATININE 0.8 mg/dL (0.5-1.0); GLOMERULAR FILTR. RATE CALC 90.0 mL/min (>90); GLUCOSE,RANDOM 192.0 mg/dL (70-105); SODIUM SERUM 140.0 mmol/L (136-145); UREA NITROGEN, BLOOD 17.0 mg/dL (7-18)
[2025-03-29 11:16] LABS: LEUKOCYTE ESTERASE ,URINE LARGE Leu/uL (NEGATIVE); NITRATE,URINE NEGATIVE (NEGATIVE)
[2025-03-29 11:17] LABS: ADD UA MICROSCOPIC YES
[2025-03-29 11:19] LABS: SQUAMOUS EPITHELIAL CELL,UR Many /HPF (0-2)
[2025-03-29] MEDS: 0.9%NACL 1000ML 1,000 ML IV ONE (11:43)
--- NOTE | 2025-03-29 13:03 | EKG ---
[facility] Test Date: 2025-03-29 Test Time: 10:17:01 Pat Name: EMILIE JOSEPH Department: [facility] Room: Gender: F Astronomy Department Chair: [id number] : 1975 Requested By: DIANA ROJAS Order Number: [id number] Reading MD: Merlin Daniel Measurements Intervals [place] Rate: 72 P: 33 OK: 168 QRS: -12 QRSD: 82 T: 56 QT: 409 QTc: 449 Interpretive Statements Sinus rhythm Probable left atrial enlargement Probable left ventricular hypertrophy Compared to ECG 02/27/2025 09:26:42 No significant changes Electronically Signed On 04-03-2025 13:03:33 PARTS CONTROL CLERK by Merlin Daniel Please click the below link to view image of tracing.
[2025-03-29 13:15] VITALS: BP 167/86; PULSE 78; RESP 18; TEMP 98; O2SAT 98
== END 2025-03-29 13:28 | disposition home or self-care (01) ==
LOC: EDH 10:13
DX: H81.10 Benign paroxysmal vertigo, unspecified ear (principal); E86.0 Dehydration; E11.65 Type 2 diabetes mellitus with hyperglycemia; N30.00 Acute cystitis without hematuria; I10 Essential (primary) hypertension; E78.00 Pure hypercholesterolemia, unspecified; Z79.899 Other long term (current) drug therapy; Z90.49 Acquired absence of other specified parts of digestive tract; Z87.442 Personal history of urinary calculi; Z79.4 Long term (current) use of insulin
CPT/HCPCS: 99284; 96374; 96361; 96375; 84484; 80048; 85025; 87040 ×2; 87086 ×2; 87186; 82948; 81001; 36415; 93005; J1100; J7030; J0696; J0360; J2405